=== PATIENT | male | born 1995 | race Caucasian/White ===

== ENCOUNTER 2018-05-16 01:06 | Emergency (ER) | payer OTHER, BC ==
[2018-05-16 01:10] VITALS: BP 145/74
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
== END 2018-05-16 01:15 ==
PROC: 2W2KX4Z Dressing of Left Finger using Bandage (ICD-10-PCS; principal; 2018-05-16)
PROC: 2W2JX4Z Dressing of Right Finger using Bandage (ICD-10-PCS; 2018-05-16)
DX: T23.232A Burn of second degree of multiple left fingers (nail), not including thumb, initial encounter (principal); T23.221A Burn of second degree of single right finger (nail) except thumb, initial encounter; S60.417A Abrasion of left little finger, initial encounter; V48.5XXA Car driver injured in noncollision transport accident in traffic accident, initial encounter; X19.XXXA Contact with other heat and hot substances, initial encounter; Y92.410 Unspecified street and highway as the place of occurrence of the external cause